=== PATIENT | male | born 1965 | race Two or more races ===

== ENCOUNTER 2022-01-26 09:30 | Outpatient (CLI) | payer OTHER ==
[~2022-01-26 09:30] MED LIST: AVAPRO300 MG; CRESTOR10 MG
== END 2022-01-26 10:20 | disposition home or self-care (01) ==
LOC: ASH CLINIC 09:30
DX: U07.1 COVID-19 (principal)

== ENCOUNTER 2024-05-31 23:19 | Emergency (ER) | payer OTHER ==
[~2024-05-31] VITALS: Ht 170.2 cm; Wt 99.8 kg
[2024-05-31] MEDS ORDERED: AVALIDE 300-121 EACH PO (23:25)
[2024-05-31] MEDS ORDERED: CHILDREN'S ASPI81 MG PO (23:26)
[2024-05-31] MEDS ORDERED: AMLODIPINE (23:26)
[2024-05-31] MEDS ORDERED: UROXATRAL10 MG (23:26)
[2024-05-31] MEDS ORDERED: ROSUVASTATIN CA10 MG PO (23:26)
[2024-06-01] MEDS ORDERED: PROMETHAZINE HCL 50 MG/ML AMPUL IM STA (01:16)
[2024-06-01] MEDS ORDERED: HYOSCYAMINE SULFATE 0.125 MG TAB.SUBL SL STA (01:16)
[2024-06-01] MEDS ORDERED: LACTOBACILLUS ACIDOPHILUS 1 CAP CAP PO STA (01:17)
[2024-06-01] MEDS ORDERED: 0.9 % SODIUM CHLORIDE 1,000 ML IV ONE (01:30)
[2024-06-01] MEDS ORDERED: FAMOTIDINE/PF 20 MG/2 ML VIAL IV PUSH SCH (01:30)
[2024-06-01 02:06] LABS: CALCIUM 9.5 mg/dL (8.5-10.1); CREATININE SERUM 1.24 mg/dL (0.70-1.30); GFR 59.46; POTASSIUM 3.92 mEq/L (3.5-5.1)
[2024-06-01 02:27] LABS: HEMATOCRIT 42.5 % (39.0-48.0); HEMOGLOBIN 14.4 g/dL (13-16.00); MEAN CELL VOLUME 89.7 fL (80.0-100.00); MEAN CORPUSCULAR HEMOGLOBIN 30.4 pg (27.00-32.0); MEAN CORPUSCULAR HGB CONC 33.9 g/dl (32.0-36.0); PLATELET COUNT 232 K/uL (150-450); RED BLOOD COUNT 4.74 M/uL (4.00-6.00); RED CELL DISTRIBUTION WIDTH 14.1 % (11.5-14.5)
[2024-06-01 03:16] LABS: URINE APPEARANCE Clear; URINE BILIRRUBIN Negative (NEGATIVE); URINE BLOOD Small; URINE COLOR Yellow; URINE GLUCOSE Negative (NEGATIVE); URINE KETONE 15 (NEGATIVE); URINE LEUKOCYTE Negative; URINE NITRATE Negative; URINE PROTEIN Negative (NEGATIVE); URINE UROBILINOGEN 0.2 E.U./dl
[2024-06-01 03:19] LABS: URINE BACTERIA 30.5 uL (0.0-1933); URINE EPITHELIAL CELLS 5.5 uL (0.0-38.8); URINE RBC 4.4 uL (0.0-20.8)
[2024-06-01 03:50] LABS: URINE CAST 0.29 uL (0.0-1.40)
[2024-06-01] MEDS ORDERED: CIPROFLOXACIN IN 5 % DEXTROSE 400 MG/200 ML PIGGYBAG IV STA (04:51)
[2024-06-01] MEDS ORDERED: ONDANSETRON HCL 2 MG/ML VIAL IV STA (04:51)
[2024-06-01] MEDS ORDERED: INTESTINEX680 M2 PO (07:40)
[2024-06-01] MEDS ORDERED: LEVSIN/SL0.125 MG SL (07:40)
[2024-06-01] MEDS ORDERED: CIPRO500 MG PO (07:40)
[2024-06-01] MEDS ORDERED: PEPCID40 MG PO (07:40)
== END 2024-06-01 07:53 ==
LOC: ER 23:21
PROVIDERS: General Practice
DX: K52.89 Other specified noninfective gastroenteritis and colitis (principal); I10 Essential (primary) hypertension; Z20.822 Contact with and (suspected) exposure to COVID-19; R53.81 Other malaise